=== PATIENT | female | born 1965 | race Two or more races ===

== ENCOUNTER 2019-11-23 13:24 | Emergency (ER) | payer OTHER ==
[~2019-11-23] VITALS: Ht 157.5 cm; Wt 73.9 kg
[2019-11-23] MEDS ORDERED: ACETAMINOPHEN 650 mg PER 20 mL UD PO ONE (14:15)
[2019-11-23 15:27] VITALS: BP 149/97
== END 2019-11-23 17:01 | disposition home or self-care (01) ==
LOC: EDBD 13:24 → ER 13:24
DX: U07.1 COVID-19 (principal); E11.9 Type 2 diabetes mellitus without complications; Z98.51 Tubal ligation status
CPT/HCPCS: 71045; 87635